=== PATIENT | female | born 1970 | race Caucasian/White ===

== ENCOUNTER → 2021-08-17 08:37 | Outpatient (CLI) | payer OTHER, SELFPAY | PROVIDERS: PCP Family Medicine; Visit Provider Nurse Practitioner | DX: Z20.822 Contact with and (suspected) exposure to COVID-19 (principal) | CPT/HCPCS: C9803; U0003; U0005 ==

== ENCOUNTER → 2021-08-22 09:58 | Outpatient (CLI) | payer OTHER, SELFPAY | PROVIDERS: PCP Family Medicine; Visit Provider Nurse Practitioner | DX: Z20.822 Contact with and (suspected) exposure to COVID-19 (principal) | CPT/HCPCS: C9803; U0003; U0005 ==

== ENCOUNTER → 2021-10-25 14:52 | Outpatient (CLI) | payer OTHER, SELFPAY | PROVIDERS: Visit Provider Nurse Practitioner | DX: U07.1 COVID-19 (principal) | CPT/HCPCS: C9803; U0003; U0005 ==

== ENCOUNTER → 2021-11-08 07:51 | Outpatient (CLI) | payer OTHER, SELFPAY ==
--- NOTE | 2021-11-08 07:57 | XR_ITS ---
FINAL REPORT CLINICAL HISTORY: RT HIP PAIN FINDINGS: RIGHT HIP WITH PELVIS 3 views were obtained. There is no acute fracture or dislocation. The joint spaces are intact. There is no soft tissue abnormality. IMPRESSION: No acute bony abnormality. Reviewed, Interpreted and Dictated by Petar Carcamo III, MD Transcribed by Luke Zarate Authenticated by Petar Carcamo III, MD on 11/08/2021 09:06:38 AM [facility]
== END ==
PROVIDERS: PCP Nurse Practitioner Family; Visit Provider Nurse Practitioner Family
DX: M25.551 Pain in right hip (principal)
CPT/HCPCS: 73502

== ENCOUNTER → 2023-09-10 11:04 | Outpatient (CLI) | payer OTHER, SELFPAY ==
--- NOTE | 2023-09-10 11:08 | XR_ITS ---
FINAL REPORT CLINICAL HISTORY: RT ELBOW PAIN COMPARISON: None FINDINGS: Three views of the right elbow were obtained. There is no acute fracture or dislocation. There are mild hypertrophic changes at the medial joint margin. There is no acute soft tissue abnormality. IMPRESSION: Mild hypertrophic changes without acute abnormality identified. Reviewed, Interpreted and Dictated by Gary Peoples MD Transcribed by Marilou Hayes Authenticated and [facility]
== END ==
PROVIDERS: PCP Family Medicine; Visit Provider Family Medicine
DX: M25.521 Pain in right elbow (principal)
CPT/HCPCS: 73080

== ENCOUNTER 2024-06-16 11:09 | Outpatient (CLI) | payer OTHER, SELFPAY ==
--- NOTE | 2024-06-16 11:23 | XR_ITS ---
FINAL REPORT CLINICAL HISTORY: BURSITIS COMPARISON: 09/10/2023 FINDINGS: RIGHT ELBOW Three views of the right elbow were obtained. There is no acute fracture or dislocation. The joint spaces are well-preserved. No joint effusion is identified. There is no acute soft tissue abnormality. IMPRESSION: No acute abnormality identified. Reviewed, Interpreted and Dictated by Gary Peoples MD Transcribed by Bebe Asher Authenticated and [facility]
--- NOTE | 2024-06-16 11:25 | XR_ITS ---
FINAL REPORT CLINICAL HISTORY: CHRONIC PAIN FINDINGS: CERVICAL SPINE Five views demonstrate no acute fracture. There is moderate disc space narrowing at C6-7 with small anterior osteophytes. The neural foramina are adequately patent. There is no malalignment. IMPRESSION: Degenerative change as above. Reviewed, Interpreted and Dictated by Gary Peoples MD Transcribed by Amy Santos Authenticated and [facility]
== END 2024-06-16 23:59 | disposition home or self-care (01) ==
LOC: RAD 11:19
PROVIDERS: PCP Family Medicine; Visit Provider Family Medicine
DX: M71.9 Bursopathy, unspecified (principal); G89.29 Other chronic pain
CPT/HCPCS: 72050; 73080

== ENCOUNTER 2024-08-20 07:07 | Outpatient (CLI) | payer OTHER, SELFPAY ==
--- NOTE | 2024-08-20 07:13 | CT_ITS ---
FINAL REPORT TECHNIQUE: Axial images were obtained from skull base to the thoracic inlet by computed tomography. Coronal and sagittal reconstruction process performed. This study was performed with techniques to keep radiation doses as low as reasonably achievable (ALARA). Individualized dose reduction techniques using automated exposure control or adjustment of mA and/or kV according to the patient''s size were employed. CLINICAL HISTORY: NECK PAIN FINDINGS: There is no acute fracture or subluxation. There is mild disc space narrowing at C6-7. Bilateral facet hypertrophy is seen right greater than left most evident at C5-6. There is multilevel neuroforaminal narrowing, most evident on the left at C6-7. The facets are normally aligned. Lobular mucoperiosteal thickening is seen of the bilateral maxillary sinuses consistent with chronic sinusitis. Limited images of the lung apices are unremarkable. IMPRESSION: No acute fracture. Mild disc space narrowing at C6-7 with neuroforaminal narrowing on the left. Bilateral facet hypertrophy, right greater than left most evident at C5-6. Chronic bilateral maxillary sinusitis. Reviewed, Interpreted and Dictated by Gary Peoples MD Transcribed by Imelda Duran Authenticated and [facility]
== END 2024-08-20 23:59 | disposition home or self-care (01) ==
LOC: RAD 07:09
PROVIDERS: PCP Family Medicine; Visit Provider Family Medicine
DX: M54.2 Cervicalgia (principal)
CPT/HCPCS: 72125

== ENCOUNTER 2024-10-13 14:28 | Outpatient (CLI) | payer OTHER, SELFPAY ==
--- NOTE | 2024-10-13 14:33 | MM_ITS ---
PROCEDURE INFORMATION: Exam: Bilateral Screening 3D Mammography Exam date and time: 10/13/2024 2:38 PM Age: 54 years old Clinical indication: Screening exam. TECHNIQUE: Imaging protocol: Bilateral Screening tomosynthesis and 2D mammography including computer-aided detection (CAD) when performed. COMPARISON: 1. MG DMSB DIGITAL MAMM-SCREEN BILATERAL 05/22/2010 5:08 PM 2. MG DIGMAMMS MAMMOGRAM SCREEN-HAND BULLDOZER N/C 05/15/2009 7:21 AM FINDINGS: MAMMOGRAPHY: Breast composition: There are scattered areas of fibroglandular density. Mass: No suspicious masses. Architectural distortion: None. Calcifications: No suspicious calcifications. Asymmetric density: None. Skin thickening: None. Axillary adenopathy: None. IMPRESSION: No mammographic evidence of malignancy. Annual screening is recommended unless otherwise clinically indicated. ASSESSMENT: BI-RADS Category 1: Negative.
--- NOTE | 2024-10-13 14:33 | XR_ITS ---
FINAL REPORT TECHNIQUE: Bone densitometry calculations of the lumbar spine and left hip were obtained. CLINICAL HISTORY: Screening Dexa Scan COMPARISON: None FINDINGS: Using L1-4, the bone mineral density of the spine is 1.123 g/cm2, corresponding to T-score of 0.7. Using the left hip, the bone mineral density of the femoral neck is 0.979 g/cm2, corresponding to a T-score of 1.2. NOTE: T-score: Standard deviation compared with peak bone mass of young adult mean. *Following the recommendations of the International Society of Bone densitometry, classification of hip BMD is based on the lower of two T-scores; total hip or femoral neck. IMPRESSION: Normal bone mineral density of the lumbar spine and hip. Reviewed, Interpreted and Dictated by Zachariah Jackman MD Transcribed by Reny Norman Authenticated and [facility]
== END 2024-10-13 23:59 | disposition home or self-care (01) ==
LOC: RAD 14:29
PROVIDERS: PCP Family Medicine; Visit Provider Obstetrics & Gynecology
DX: Z12.31 Encounter for screening mammogram for malignant neoplasm of breast (principal); N95.9 Unspecified menopausal and perimenopausal disorder
CPT/HCPCS: 77063; 77067; 77080

== ENCOUNTER 2024-11-17 07:24 | Day surgery (SDC) | payer OTHER, SELFPAY ==
[2024-11-15 17:21] VITALS: BMI 42.0
[2024-11-17 08:34] VITALS: BP 141/91; PULSE 69; RESP 18; TEMP 36.7; O2SAT 99
[2024-11-17] MEDS: LACTATED RINGERS 1000ML 1,000 ML 50 ML IV (08:44)
[2024-11-17 09:23] VITALS: O2SAT 97
--- NOTE | 2024-11-17 09:26 | EXP.ANES.CKL ---
[facility] Disclaimer: The information contained in this section may have been updated after the patient was seen, as this information can be updated by other users. Medical History Fluid level behind tympanic membrane of right ear Hearing loss Hearing difficulty of both ears Tinnitus of both ears Surgical History History of elbow surgery History of total hysterectomy History of bilateral breast reduction surgery Family History Other No significant family history Social History (Updated 11/17/24 @ 08:41 by Meagan Ma RN) Smoking Status: Former smoker alcohol intake: never substance use type: denies use current occupational status: employed Travel in the last 8 weeks: None caffeine: Yes [facility] Anesthesia Checklist Patient Identification Patient Identification: Verbal (Name & ) Structural Data Admitted From: Home Planned Operative Procedure/s: colonoscopy Consent for Planned Operative Procedure(s) Verified: Yes Airway Assessment Mallampati Score:: Class II C-Spine Mobility Assessed: Yes TMJ Mobility Assessed: Yes Dentition: Good Dentition Neurological Assessment Level of Consciousness: Awake, Alert and Appropriate Anesthesia Plan Anesthesia Risk discussed: Yes Anesthesia Plan: Verified ASA Class: II Anesthesia Type: MAC
--- NOTE | 2024-11-17 09:27 | P.HP_ITS ---
History of Present Illness *Admission Date: 11/17/24 *Reason for visit:: Screening for colon cancer *History of present illness: Mrs. Melgoza is a 54-year-old female who is here for initial screening colonoscopy. The examination is deemed medically necessary for screening colonoscopy. The patient has been seen, interviewed and examined prior to the procedure by both myself and the anesthesia provider. [facility] Disclaimer: The information contained in this section may have been updated after the patient was seen, as this information can be updated by other users. Medical History (Updated 11/17/24 @ 09:31 by Jerry Larios II, MD) Fluid level behind tympanic membrane of right ear Hearing loss Hearing difficulty of both ears Tinnitus of both ears Surgical History History of elbow surgery History of total hysterectomy History of bilateral breast reduction surgery Family History Other No significant family history Social History (Updated 11/17/24 @ 09:27 by Jean Vicente CRNA) Smoking Status: Former smoker alcohol intake: never substance use type: denies use current occupational status: employed Travel in the last 8 weeks: None caffeine: Yes Have you lived/traveled outside US in past 30 days?: No Contact w/someone who lives/traveled outside US past 30 days?: No Exposure to someone with infectious disease in past 14 days?: No Do you have a fever (greater than 100.4 F or 38 C)?: No Have you tested positive for COVID-19: Yes Exposed to someone with COVID-19 in past 14 days?: No Do you have a sore throat?: No Do you have a cough?: No Do you have any weakness?: No Are you experiencing any nausea/vomitting?: No Do you have any diarrhea?: No Are you experiencing any unusual bleeding?: No Do you have any muscle aches/pain?: No Do you have any abdominal pain?: No Are you experiencing loss of taste or smell?: No Other Medical History Have you received the Pneumonia Vaccine: No Review of Systems Review of Systems Review of systems (narrative): Negative *Cardiovascular Comments: Negative *Gastrointestinal Comments: Negative *Genitourinary Comments: Negative *Musculoskeletal Comments: Negative *Neurologic Comments: Negative Meds Home Medications and Allergies Home Medications ?Medication ?Instructions ?Recorded ?Confirmed ?Type sodium,potassium,mag sulfates 17.5 See Rx Instructions PO .COMPLEX 11/05/24 Rx gram-3.13 gram-1.6 gram oral soln #354 mL (Suprep Bowel Prep Kit) New Prescriptions to Start Prescriptions: Allergies Allergy/AdvReac Type Severity Reaction Status Date / Time clarithromycin (From Biaxin) AdvReac Mild Rash Verified 11/17/24 08:32 Exam Data for Last 24 hours Vital signs and Labs for Last 24 Hours: Temp Pulse Resp BP Pulse Ox O2 Del Method O2 Flow Rate 98.0 F 69 18 141/91 H 99 Nasal Cannula 5 11/17/24 08:34 11/17/24 08:34 11/17/24 08:34 11/17/24 08:34 11/17/24 08:34 11/17/24 09:23 11/17/24 09:23 I & O for Last 24 hours: Intake & Output 11/14/24 11/15/24 11/16/24 11/17/24 23:59 23:59 23:59 23:59 Weight 230 lb *Routine HEENT Exam Head: Present normocephalic Eye: Present EOMI and PERRL ENT: Present mucous membranes moist *Routine Neck Exam Neck: Present supple *Routine Respiratory Exam Respiratory: Present CTA bilaterally *Routine Cardiovascular Exam Cardiovascular: Present RRR *Routine Abdominal Exam Abdominal: Present soft and normoactive bowel sounds; Absent tenderness *Routine Rectal Exam Rectal:: deferred *Routine Genitalia Exam Genitalia:: deferred *Routine Extremities Exam Extremities: Absent cyanosis, clubbing or edema *Routine Skin Exam Skin: Present warm; Absent rash *Routine Neurological Exam Neurological: Present alert and oriented X3 Assessment and Plan *Assessment and plan (1) Screening for colon cancer: Status: Acute Category: Medical Code(s): Z12.11 - Encounter for screening for malignant neoplasm of colon Plan A/P: 1. Screening for colon cancer is the preprocedural diagnosis. The patient will be anesthetized/sedated using MAC sedation. The patient has been seen and examined. Cardiac and lung assessment prior to the examination is stable. Proceed with planned screening colonoscopy
--- NOTE | 2024-11-17 09:31 | HMH.PROCNOTE ---
[facility] Procedure Note Date: 11/17/24 Time: 09:43 Procedure Note:: Colonoscopy Procedure Report: Colonoscopy with cold snare polypectomy Endoscopist: Jerry Larios II, MD Referring physician: Cynthia Parker DO/Tushar Robin MD Date of Procedure: November 17, 2024 Equipment: Olympus 190 variable stiffness pediatric colonoscope Sedation: MAC sedation Indication: Mrs. Melgoza is a 54-year-old female who is here for initial screening colonoscopy. She reports no abdominal pain, weight loss, change in her bowel habits or rectal bleeding. She reports no family history of colon cancer. She did have a negative Cologuard test 2 years ago. Procedure: Prior to the procedure, a history and physical exam was performed, and patient's medications and allergies were reviewed. The risks, benefits and alternatives of the sedation and procedure were discussed with the patient. All questions were answered and informed consent was obtained. The patient was brought to the procedure room. Patient identification and proposed procedure were verified by the physician and the nurse. The patient was placed in a left lateral decubitus position and the scope was passed under direct vision. Throughout the procedure, the patient's blood pressure, pulse, and oxygen saturations were monitored continuously. The colonoscopy was accomplished without difficulty. The patient tolerated the procedure well. Findings: On digital rectal examination there was normal rectal tone. There were no external hemorrhoids. The colonoscope was introduced through the anal canal to the rectum and advanced to the cecum. The ileocecal valve and appendiceal orifice were identified. The scope was advanced a short distance into the ileum which appeared grossly normal. The scope was then withdrawn into the colon. The cecum, ascending, transverse, descending, sigmoid colon were grossly normal. There were 2 diminutive polyps (3 and 4 mm) in the rectosigmoid removed via cold snare polypectomy. There were no other mucosal abnormalities identified. Upon retroflexion within the rectum there were grade 1-2 internal hemorrhoids. The preparation was excellent throughout with Hidalgo Preparation Score of 9. The cecal time was 11 minutes. Impression: 1. Diminutive rectosigmoid polyps x 2 Plan: I will follow-up the polyp histology and recommend repeat surveillance colonoscopy again in 7 to 10 years based upon the pathology.
[2024-11-17 09:47] VITALS: BP 117/74; PULSE 60; RESP 15; TEMP 36.5; O2SAT 93
[2024-11-17 09:57] VITALS: BP 122/79; PULSE 62; RESP 15; O2SAT 94
[2024-11-17 10:07] VITALS: BP 134/78; PULSE 61; RESP 16; O2SAT 97
[2024-11-17 10:17] VITALS: BP 130/82; PULSE 63; RESP 16; TEMP 36.6; O2SAT 99
== END 2024-11-17 10:17 | disposition home or self-care (01) ==
PROVIDERS: PCP Family Medicine; Visit Provider Internal Medicine Gastroenterology
PROC: 0DJD8ZZ Inspection of Lower Intestinal Tract, Via Natural or Artificial Opening Endoscopic (ICD-10-PCS; CPT 45378; principal; 2024-11-17 09:00)
DX: Z12.11 Encounter for screening for malignant neoplasm of colon (principal); K63.5 Polyp of colon; K64.8 Other hemorrhoids
CPT/HCPCS: 45385; J7120

== ENCOUNTER 2025-04-26 07:51 | Outpatient (CLI) | payer OTHER, SELFPAY ==
--- OUTSIDE RECORDS SUMMARY | 2025-04-26 07:54 | XMS_ITS | Encounter Summary ---
Author Organization [facility] ystem Address [address] [place] [address] Care Team Providers Care Grips Name Role Phone Rogelio Robin MD Primary Care Provider [phone] Encounter Details Date Type Department Care Team (Late st Contact Info) Description 11/06/2012 Conversion Encounter [facility] HISTORICAL CONV [address] [place] [address] Interface, See Report Social History Tobacco Use Types Packs/Day Years Used Date Smoking Tobacco: Never Assessed Comments Unknown Sex and Gender Information Value Date Recorded Sex Assigned at Not on file Legal Sex Female 11:54 AM EDT Gender Identity Not on file Sexual Orientation Not on file documented as of this encounter Progress Notes * Interface, See Report - 11/06/2012 12:00 AM EST Patient: BRYAN MELGOZA. MR #: : [id number] Date of Visit: 11/06/2012 Attending Physician: Carlito Beasley Dictated By: CHEYENNE BRASHER Referring Physician: Diagnosis: UTERINE PROLAPSE Allergies: BIAXIN Chief complaint: NO PROBLEMS. BLADDER AND BOWELS WORKING VERY WELL. History of present illness: 3 MO FU; TVH, BSO , VAG CUFF SUSPENSION 07-07-2012 FOR PROLAPSE . 42 yofemale here today for 3 month follow-up from TVH, BSO, vag suspension 07/10. She is feeling well, bowels and bladder are working well, and she is very happy with her surgical outcome. She is doing well on Vivelle dot for HRT. She plans to return to Dr. Guajardo for regular gynecologic care. Past medical history: Medical: HTN, DIABETES, GROSS, ANXIETY, SINUS, Surgical: BREAST AUGMENTAION, TVH BSO VAG CUFF SUSPENSION Health maintenance: Mammogram: Colonoscopy: Pap smear: 05/26/12 Tumor Marker: CT Scan: BMD: Review of systems: Constitutional: No change in weight, no excessive fatigue Psychiatric: + ANXIETY, depression, bipolar disorder, or insomnia Respiratory: No shortness of breath, cough, asthma, wheezing Cardiovascular: + HTN, No angina, orthopnea, edema, murmur, hyperlipidemia Gastrointestinal: No constipation or diarrhea, no reflux, nausea, or vomiting Genitourinary: No dysuria, hematuria, urgency, or frequency Neurologic: + GROSS, No numbness, weakness, syncope, seizures Gynecologic: No abnormal bleeding, vaginal discharge, pelvic pain, of h/o abnml pap smears LMP: P: 2 Vag Deliveries: 2 C-sec: Additional notes: +SINUS, + DIABETES, Medications: See documented medication list. Physical exam: Constitutional: Weight 218 Height BP 126/84 Pulse Temp Neurological/Psychiatric: HEENT: Neck: Respiratory: Cardiovascular: Breasts: Gastrointestinal: Lymphatic: Extremities: Gynecologic: External Genitalia: Vagina: Cervix: Uterus: Ovaries: Parametria: Smooth. Rectovaginal: Hemoccult: Procedure note: Assessment: Satisfactory s/p TVH,BSO, Vag Suspension for uterine prolapse Plan: Discussed continuing kegal exercised to prevent weakening or pelvic floor muscles and decrease riskfor recurrence of prolapse. Regular [facility] care with Dr. Guajardo Approved by: Kate Mulligan 11/06/2012, 9:43 AM cc: documented in this encounter Plan of Treatment Not on file documented as of this encounter Visit Diagnoses Not on filedocumented in this encounter Care Teams Grips Relationship Specialty Start Date End Date Rogelio Robin MD [address] [id number] PCP - General 07/05/15 documented as of this encounter
--- OUTSIDE RECORDS SUMMARY | 2025-04-26 07:54 | XMS_ITS | Clinical Summary ---
Author Organization [facility] ystem Address [address] [place] [address] Care Team Providers Care Business Analytics Analyst Name Role Phone Rogelio Robin MD Primary Care Provider [phone] Allergies Active Allergy Reactions Criticality Noted Date Comments Clarithromycin Rash Low 07/12/2020 Medications No known medications Active Problems No known active problems Family History Medical History Relation Name Comments Colon cancer Father Heart disease Father Hypertension Father Colon cancer Maternal Grandfather Diabetes Paternal Grandfather Breast cancer Paternal Grandmother Heart disease Paternal Grandmother Hypertension Paternal Grandmother Ovarian cancer Neg Hx Relation Name Status Comments Father Maternal Grandfather Paternal Grandfather Paternal Grandmother Social History Tobacco Use Types Packs/Day Years Used Date Smoking Tobacco: Never Alcohol Use Standard Drinks/Week Comments Yes 0 (1 standard drink = 0.6 oz pur e alcohol) OCCASIONAL/NO ABUSE Overall Financial Resource Strain (CARDIA) Answe r Date Recorded How hard is it for you to pa y for the very basics like food, housing, medical care, and heating? Not hard at all 07/12/2020 [facility] Occupat ional Health - Occupational Stress Questionnaire Answer Date Recorded Do you feel stress - tense, restless, nervous, or anxious, or unable to sleep at night because your mind is troubled all the time - these days? Not at all 07/12/2020 Exercise Vital Sign Answer Date Recorde d On average, how many days pe r week do you engage in moderate to strenuous exercise (like a brisk walk)? 0 days 07/12/2020 On average, how many minutes do you engage in exercise at this level? 0 min 07/12/2020 Hunger Vital Sign Answer Date Recorded Within the past 12 months, y ou worried that your food would run out before you got the money to buy more. Never true 07/12/20 20 Within the past 12 months, t he food you bought just didn't last and you didn't have money to get more. Never true 07/12/2020 PRAPARE - Transportation Answer Date Re corded In the past 12 months, has l ack of transportation kept you from medical appointments or from getting medications? No 06/29 In the past 12 months, has l ack of transportation kept you from meetings, work, or from getting things needed for daily living? No 07/12/2020 Abuse Screen Answer Date Recorded Unsafe at Home or Work/School Not on file Feels Threatened by Someone? Not on file 05/2023 Does Anyone Keep You from Co ntacting Others or Doint Things Outside the Home? Not on file 07/07/2023 Physical Sign of Abuse Present Not on file 1 Housing Stability Answer Date Recorded Current Living Arrangements Not on file 05/2023 Potentially Unsafe Housing Conditions Not on ronal e 07/07/2023 Family and Community Support Answer Cyrus e Recorded Help with Day-to-Day Activities Not on file 07/07/2023 Lonely or Isolated Not on file 07/07/2023 Employment Answer Date Recorded Do you want help finding or keeping work or a mansoor b? Not on file 07/07/2023 Disabilities Answer Date Recorded Concentrating, Remembering, or Making Decisions Difficulty Not on file 07/07/2023 Doing Errands Independently Difficulty Not on fi le 07/07/2023 Education Answer Date Recorded Help with school or training? Not on file Preferred Language Not on file 07/07/2023 Comments No Sex and Gender Information Value Date Recorded Sex Assigned at Not on file Legal Sex Female 11:54 AM EDT Gender Identity Not on file Sexual Orientation Not on file Occupation Industry Job Start Date Job End Date CLERICAL Not on file Not on file Not on file Last Filed Vital Signs Vital Sign Reading Time Taken Comments Blood Pressure 120/90 08/03/2020 8:56 AM EST Pulse - - Temperature 36.3 C (97.3 F) 08/03/2020 8:56 AM EST Respiratory Rate - - Oxygen Saturation - - Inhaled Oxygen Concentration - - Weight 108 kg (237 lb) 08/03/2020 8:56 AM EST Height 157.5 cm (5' 2 ) 08/03/2020 8:56 AM EST Body Mass Index 43.35 08/03/2020 8:56 AM EST Plan of Treatment Health Maintenance Due Date Last Done Comments Annual Gynecologic Pelvic an d Breast Exam 1970 TDAP/TD VACCINES (1 - Tdap) 1988 COLOGUARD 2014 COLON CANCER SCREENING 5 YEA R SIGMOIDOSCOPY 2014 COLONOSCOPY [address] CANCER SCREENING 2014 CT COLONOGRAPHY 2014 FECAL OCCULT BLOOD TEST 2014 FIT Testing (1 year) 2014 Pneumococcal Vaccine 50+ (1 of 1 - PCV) 2019 ZOSTER VACCINE (1 of 2) 2019 ANNUAL PHYSICAL 07/11/2020 HEPATITIS C SCREENING 07/11/2020 MAMMOGRAM 02/22/2024 02/21/2022, 11/0 01/2020, 05/12/2019, Additional history exists COVID-19 Vaccine (2 - 2023-2 5 season) 2024 12/06/2020 INFLUENZA VACCINE 06/29/2025 Procedures Procedure Name Priority Date/Time Associated Diagnosis Comments MAMMO SCREENING DIGITAL TOMOSYNTHESIS BILATERAL W CAD Routine 02/21/2022 8:37 AM EDT Visit for screening mammogram from Last 3 Months or Most Recently Relevant to Health Maintenance Results * Mammo Screening Digital Tomosynthesis Bilateral With CAD (02/21/2022 8:37 AM EDT) Anatomical Region Laterality Modality Breast N/A Mammography 02/25/2022 7:42 PM EDT Impressions 02/25/2022 7:43 PM EDT No findings suspicious for malignancy. ACR BI-RADS CATEGORY: 1, NEGATIVE RECOMMENDATION: Yearly mammogram, yearly clinical breast exam, and encourage self breast awareness. CAD was used. The standard false negative rate of mammography is between 10% and 25%. Complex patterns or increased breast density will markedly elevate the false negative rate of mammography. A letter, in lay terminology, with the results of this exam will be mailed to the patient. If there is a palpable area of concern, biopsy should be considered regardless of imaging findings. This report was finalized on 02/25/2022 7:43 PM by Wendy Hummel MD. Narrative 02/25/2022 7:43 PM EDT ROUTINE DIGITAL SCREENING MAMMOGRAM WITH TOMOSYNTHESIS HISTORY: Routine screening. IMAGE COMPARISON: Extending to 2017. TECHNIQUE: Low dose full field digital breast tomosynthesis imaging was performed with 2D and 3D acquisitions consisting of bilateral CC and MLO views. FINDINGS: The breasts are predominantly adipose tissue. The fibroglandular pattern appears stable. There is no mass, worrisome microcalcifications, or architectural distortion to suggest development of malignancy. us Caleb Guajardo MD IMG MAMMOGRAPHY ORDERABLES Final Result from Last 3 Months or Most Recently Relevant to Health Maintenance Insurance [facility] Care Teams Business Analytics Analyst Relationship Specialty Start Date End Date Rogelio Robin MD [address] [place], [place] [phone] PCP - General 07/05/15
--- NOTE | 2025-04-26 08:00 | US_ITS ---
PROCEDURE INFORMATION: Exam: US Left Breast, Complete Exam date and time: 04/26/2025 8:06 AM Age: 54 years old Clinical indication: Region of palpable concern 9 o'clock left breast. TECHNIQUE: Imaging protocol: Complete ultrasound of all four quadrants of the left breast and the retroareolar regions, including ultrasound of the axilla when performed. COMPARISON: MG MM DIG SCREENING MAMM BI W/CAD 10/13/2024 2:38 PM FINDINGS: ULTRASOUND: Breast ultrasound findings: Left breast ultrasound:No cysts, masses, regions of shadowing or distortion are seen. No abnormal lymph nodes in the axilla. IMPRESSION: No sonographic finding to explain the region of palpable concern in the left breast. Recommend clinical follow-up. ASSESSMENT: BI-RADS Category 1: Negative.
== END 2025-04-26 23:59 | disposition home or self-care (01) ==
LOC: RAD 07:52
PROVIDERS: PCP Family Medicine; Visit Provider Obstetrics & Gynecology
DX: N63.25 Unspecified lump in the left breast, overlapping quadrants (principal)
CPT/HCPCS: 76641

== ENCOUNTER 2025-05-10 10:28 | Outpatient (CLI) | payer OTHER, SELFPAY ==
--- NOTE | 2025-05-10 10:32 | XR_ITS ---
FINAL REPORT CLINICAL HISTORY: FOOT INJURY COMPARISON: None FINDINGS: AP, oblique and lateral views of the right foot were obtained. There is no acute fracture or dislocation. The joint spaces are preserved. Soft tissues are unremarkable. IMPRESSION: No acute osseous abnormality of the right foot. Reviewed, Interpreted and Dictated by Vicki Pedraza MD Transcribed by Reny Norman Authenticated and . [facility]
--- OUTSIDE RECORDS SUMMARY | 2025-05-10 10:37 | XMS_ITS | Encounter Summary ---
Author Organization [facility] ystem Address [address] [place] [address] Care Team Providers Care Wood Car Builder Name Role Phone Rogelio Robin MD Primary Care Provider [phone] Encounter Details Date Type Department Care Team (Late st Contact Info) Description 11/06/2012 Conversion Encounter [facility] HISTORICAL CONV [address] [place] [address] Interface, See Report Social History [...] and decrease riskfor recurrence of prolapse. Regular TRANSPORT AIDE care with Dr. Guajardo Approved by: Kate Mulligan 11/06/2012, 9:43 AM cc: documented in this encounter Plan of Treatment Not on file documented as of this encounter Visit Diagnoses Not on filedocumented in this encounter Care Teams Wood Car Builder Relationship Specialty Start Date End Date Rogelio Robin MD [address] [id number] PCP - General 07/05/15 documented as of this encounter
--- OUTSIDE RECORDS SUMMARY | 2025-05-10 10:37 | XMS_ITS | Clinical Summary ---
Author Organization [facility] Address [address] [place] [address] Care Team Providers Care Transition Program Manager Name Role Phone Rogelio Robin MD Primary Care Provider Allergies Active Allergy Reactions Criticality Noted Date [...] and heating? Not hard at all 07/12/2020 [facility] - Occupational Stress [...] Most Recently Relevant to Health Maintenance Insurance [facility] Care Teams Transition Program Manager Relationship Specialty Start Date End Date Rogelio Robin MD [address], [place] [id number] PCP - General 07/05/15
== END 2025-05-10 23:59 | disposition home or self-care (01) ==
LOC: RAD 10:29
PROVIDERS: PCP Nurse Practitioner; Visit Provider Nurse Practitioner
DX: S99.929A Unspecified injury of unspecified foot, initial encounter (principal); X58.XXXA Exposure to other specified factors, initial encounter
CPT/HCPCS: 73630